=== PATIENT | male | born 1990 | race Caucasian/White ===

== ENCOUNTER → 2018-03-23 | Outpatient (CLI) | payer OTHER ==
[2018-03-23 08:23] LABS: MEAN CORPUSCULAR HEMOGLOBIN 29.8 pg (27.5-34.5); MEAN CORPUSCULAR HGB CONC 34.3 g/dL (33.2-36.2); MEAN CORPUSCULAR VOLUME 86.9 fL (81-97); MEAN PLATELET VOLUME 6.7 fL (7.4-10.4); PLATELET COUNT 262 x10^3/uL (130-400); RED BLOOD COUNT 5.28 x10^6/uL (4.38-5.82); RED CELL DISTRIBUTION WIDTH 12.6 % (9.4-14.8)
[2018-03-23 08:34] LABS: ALANINE AMINOTRANSFERASE 20 U/L (12-78); ALBUMIN 3.7 g/dL (3.4-5.0); ANION GAP 6 mmol/L (5-15); CALCIUM 8.1 mg/dL (8.5-10.1); CHLORIDE 107 mmol/L (98-107); CHOLESTEROL, TOTAL 162 mg/dL (140-239)
[2018-03-23 08:44] LABS: ALKALINE PHOSPHATASE 59 U/L (45-117); BILIRUBIN,TOTAL 0.4 mg/dL (0.2-1.0); CHOL/HDL RATIO 2.7; HDL CHOL % 38 % (26-37); HDL CHOLESTEROL (DIRECT) 61 mg/dL (40-60); LDL CHOLESTEROL,CALCULATED 89 mg/dL (54-169); LDL/HDL RATIO 1.5 (0.5-3.0); TOTAL PROTEIN 7.1 g/dL (6.4-8.2); TRIGLYCERIDES 60 mg/dL (50-200); VLDL CHOLESTEROL 12 mg/dL (0-25)
[2018-03-23 12:37] LABS: HEMOGLOBIN A1C 5.4 % (4.2-6.3)
== END | disposition home or self-care (01) ==
LOC: LAB 08:08
PROVIDERS: ATTEND Family Medicine
DX: Z13.0 Encounter for screening for diseases of the blood and blood-forming organs and certain disorders involving the immune mechanism (principal); Z13.1 Encounter for screening for diabetes mellitus; Z13.220 Encounter for screening for lipoid disorders; E55.9 Vitamin D deficiency, unspecified; R68.82 Decreased libido
CPT/HCPCS: 36415; 80053; 80061; 82306; 83036; 84402; 84403; 84443; 85027

== ENCOUNTER 2019-06-07 10:14 | Emergency (ER) | payer OTHER ==
[~2019-06-07] VITALS: Ht 188 cm; Wt 113.4 kg
[2019-06-07 10:19] VITALS: BP 137/84
--- NOTE | 2019-06-07 10:39 | NUR ---
PT TO RADIOLOGY AMBULATORY.
[2019-06-07] MEDS ORDERED: ALBUTEROL/IPRATROPIUM 2.5MG/0.5MG, 3 ML ONE (10:44)
--- NOTE | 2019-06-07 10:44 | NUR ---
PT BACK FROM CT. Addendum: 06/07/19 at 1044 by KETAN PT BACK FROM RADIOLOGY.
--- NOTE | 2019-06-07 10:51 | NUR ---
PT HERE WITH CO [employer] AND SMOKE INHALATION FORM WORK ON 06/06. PT STATES COUCH, NAUSEA, HEADACHE AND OCCASSIONAL DIZZINESS. PT DENIES MEDICAL HX EXCEPT ASTHMA A CHILD. AAO X 4, ON PULSE OX. RT AT BEDSIDE FOR TREATMENT.
[2019-06-07] MEDS ORDERED: ALBUTEROL/IPRATROPIUM 2.5MG/0.5MG, 3 ML NPPB ONE (11:00)
--- NOTE | 2019-06-07 11:00 | NUR ---
ALL RESULTS BACK AT THIS TIME, CHART UP FOR RECHECK.
--- NOTE | 2019-06-07 11:55 | NUR ---
Patient/Caregiver given discharge instructions and they have confirmed that they understand the instructions. Patient ambulatory with steady gait.
== END 2019-06-07 11:57 | disposition home or self-care (01) ==
LOC: ED 11:45
DX: R06.00 Dyspnea, unspecified (principal); J68.9 Unspecified respiratory condition due to chemicals, gases, fumes and vapors; Z72.89 Other problems related to lifestyle
CPT/HCPCS: 71046; 94640; 99283; J7620